=== PATIENT | female | born 1965 | race Asian ===

== ENCOUNTER 2020-06-04 12:47 | Outpatient (CLI) | payer OTHER | END 2020-06-04 23:59 | disposition home or self-care (01) | LOC: EDBD → CFH 12:47 → MERGE 12:47 → CFH 23:59 | PROVIDERS: ATTEND Internal Medicine | DX: Z12.31 Encounter for screening mammogram for malignant neoplasm of breast (principal) | CPT/HCPCS: 77063; 77067 ==